=== PATIENT | male | born 1960 | race Caucasian/White ===

== ENCOUNTER 2019-02-03 06:33 | Day surgery (SDC) | payer OTHER ==
[~2019-02-03 06:33] MED LIST: AMBIEN10 MG PO; ASA81 MG PO; DIOVAN320 MG PO; METFORMIN HCL500 MG PO; SULFAMETHOXAZOL1 TA6 PO
== END 2019-02-03 12:20 | disposition home or self-care (01) ==
LOC: AMB-ENDOS 06:33 → ADM 14:00
DX: K57.32 Diverticulitis of large intestine without perforation or abscess without bleeding (principal); K64.1 Second degree hemorrhoids